=== PATIENT | female | born 1995 | race Caucasian/White ===

== ENCOUNTER 2017-01-02 02:20 | Emergency (ER) | payer OTHER ==
[2017-01-02 03:01] LABS: Hematocrit 43 % (35-47); Hemoglobin 14.4 g/dl (12.0-16.0); Mean Corpuscular HGB Conc 34 g/dl (31-36); Mean Corpuscular Hemoglobin 29 pg (27-31); Mean Corpuscular Volume 87 fL (80-97); Mean Platelet Volume 7 um3 (7.4-10.4); Red Blood Count 4.92 10^6/ul (4.0-5.4); Red Cell Distribution Width 13 % (10.5-15); White Blood Count 6.5 10^3/ul (3.5-10.8)
[2017-01-02 03:16] LABS: Albumin 4.3 g/dL (3.2-5.2); BUN/Creatinine Ratio 13.6 (8-20); Calcium 9.3 mg/dL (8.6-10.3); EGFR African American 89.8 (>60); EGFR Non-African American 69.8 (>60); Globulin 3.3 g/dL (2-4); Potassium 3.8 mmol/L (3.5-5.0); Total Bilirubin 0.3 mg/dL (0.2-1.0); Total Protein 7.6 g/dL (6.4-8.9)
--- NOTE | 2017-01-02 06:01 | ED ---
Leny Mcclain Emily, scribed for Zane Grimaldo on 01/02/17 at 0229 . Substance Abuse/Use - HPI Summary HPI Summary: This patient is an 20 year old F BIBA to [facility] with a chief complaint of EtOH intoxication. UNABLE TO OBTAIN FULL HPI DUE TO LEVEL 5 CAVEAT EtOH INTOXICATION - History Of Current Complaint Chief Complaint: EDSubstanceAbuse Stated Complaint: ALCOHOL CONSUMPTION Time Seen by Provider: 01/02/17 02:24 Hx Obtained From: Patient Hx From Patient Unobtainable Due To: Other - LEVEL 5 CAVEAT - EtOH INTOXICATION - Allergies/Home Medications Allergies/Adverse Reactions: Allergies Allergy/AdvReac Type Severity Reaction Status Date / Time No Known Allergies Allergy Verified 01/02/17 02:28 PMH/Surg Hx/FS Hx/Imm Hx Previously Healthy: No - UNABLE TO OBTAIN PMHx DUE TO LEVEL 5 CAVEAT - EtOH INTOXICATION Review of Systems - ROS Summary Review of Systems Summary: UNABLE TO OBTAIN HPI DUE TO LEVEL 5 CAVEAT - EtOH INTOXICATION All Other Systems Reviewed And Are Negative: No Physical Exam - Summary Physical Exam Summary: Pt is lethargic Triage Information Reviewed: Yes Vital Signs On Initial Exam: Initial Vitals Temp Pulse Resp BP Pulse Ox 97.6 F 57 16 111/73 95 01/02/17 02:24 01/02/17 02:24 01/02/17 02:24 01/02/17 02:24 01/02/17 02:24 Vital Signs Reviewed: Yes Completion Of Physical Exam Limited Due To: Level 5 - EtOH INTOXICATION Appearance: Positive: Well-Appearing, No Pain Distress Skin: Positive: Warm, Skin Color Reflects Adequate Perfusion, Dry Head/Face: Positive: Normal Head/Face Inspection Eyes: Positive: EOMI, ZENON ENT: Positive: Normal ENT inspection Neck: Positive: Supple, Nontender Respiratory/Lung Sounds: Positive: Clear to Auscultation, Breath Sounds Present Cardiovascular: Positive: RRR, Pulses are Symmetrical in both Upper and Lower Extremities Abdomen Description: Positive: Nontender, Soft Bowel Sounds: Positive: Present Musculoskeletal: Positive: Normal, Strength/ROM Intact Diagnostics - Vital Signs Vital Signs Temp Pulse Resp BP Pulse Ox 01/02/17 04:30 67 94/57 97 01/02/17 04:00 64 93/53 97 01/02/17 03:30 64 105/56 97 01/02/17 03:00 59 100/67 97 01/02/17 02:49 82 114/83 100 01/02/17 02:30 52 98 01/02/17 02:24 97.6 F 57 16 111/73 95 - Laboratory Lab Results: Lab Results 01/02/17 01/02/17 Range/Units 02:40 02:40 WBC 6.5 (3.5-10.8) 10^3/ul RBC 4.92 (4.0-5.4) 10^6/ul Hgb 14.4 (12.0-16.0) g/dl Hct 43 (35-47) % MCV 87 (80-97) fL MCH 29 (27-31) pg MCHC 34 (31-36) g/dl RDW 13 (10.5-15) % Plt Count 282 (150-450) 10^3/ul MPV 7 L (7.4-10.4) um3 Neut % (Auto) 69.7 (38-83) % Lymph % (Auto) 24.7 L (25-47) % Irwin % (Auto) 4.3 (1-9) % Eos % (Auto) 0.5 (0-6) % Baso % (Auto) 0.8 (0-2) % Absolute Neuts (auto) 4.5 (1.5-7.7) 10^3/ul Absolute Lymphs (auto) 1.6 (1.0-4.8) 10^3/ul Absolute Monos (auto) 0.3 (0-0.8) 10^3/ul Absolute Eos (auto) 0 (0-0.6) 10^3/ul Absolute Basos (auto) 0.1 (0-0.2) 10^3/ul Absolute Nucleated RBC 0 10^3/ul Nucleated RBC % 0 Sodium 139 (133-145) mmol/L Potassium 3.8 (3.5-5.0) mmol/L Chloride 103 (101-111) mmol/L Carbon Dioxide 29 (22-32) mmol/L Anion Gap 7 (2-11) mmol/L BUN 14 (6-24) mg/dL Creatinine 1.03 H (0.51-0.95) mg/dL Est GFR ( Amer) 89.8 (>60) Est GFR (Non-Af Amer) 69.8 (>60) BUN/Creatinine Ratio 13.6 (8-20) Glucose 115 H (70-100) mg/dL Calcium 9.3 (8.6-10.3) mg/dL Total Bilirubin 0.30 (0.2-1.0) mg/dL AST 23 (13-39) U/L ALT 16 (7-52) U/L Alkaline Phosphatase 53 (34-104) U/L Total Protein 7.6 (6.4-8.9) g/dL Albumin 4.3 (3.2-5.2) g/dL Globulin 3.3 (2-4) g/dL Albumin/Globulin Ratio 1.3 (1-3) Serum Alcohol 234 H (<10) mg/dL Result Diagrams: 01/02/17 02:40 01/02/17 02:40 Lab Statement: Any lab studies that have been ordered have been reviewed, and results considered in the medical decision making process. Course/Dx - Course Assessment/Plan: This patient is an 20 year old F BIBA to [facility] with a chief complaint of EtOH intoxication. UNABLE TO OBTAIN FULL HPI DUE TO LEVEL 5 CAVEAT EtOH INTOXICATION. Physical Exam Findings. Lethargic. Medical Decision Making. Patient will be discharged with prescription for follow up from PCP. The patient is agreeable with this plan. - Diagnoses Provider Diagnoses: Alcohol intoxication, Creatinine elevation, Dehydration Discharge - Discharge Plan Condition: Stable Disposition: HOME Patient Education Materials: Alcohol Intoxication (ED) Referrals: [facility] - Vicente MELGOZA [Primary Care Provider] - 3 Days Additional Instructions: RETURN TO THE EMERGENCY DEPARTMENT FOR CHANGING OR WORSENING SYMPTOMS. The documentation as recorded by the Leny barnett Emily accurately reflects the service I personally performed and the decisions made by Dillan holman Emmanuel.
[2017-01-02 06:39] VITALS: BP 101/75
== END 2017-01-02 06:38 | disposition home or self-care (01) ==
LOC: EDBD → ED 02:20
DX: F10.129 Alcohol abuse with intoxication, unspecified (principal); Y90.7 Blood alcohol level of 200-239 mg/100 ml; E86.0 Dehydration; R79.89 Other specified abnormal findings of blood chemistry
CPT/HCPCS: 36415; 80053; 80320; 85025; 99283; G0480